=== PATIENT | male | born 1955 | race Caucasian/White ===

== ENCOUNTER 2018-09-10 06:26 | Day surgery (SDC) | payer OTHER ==
[2018-09-10] MEDS ORDERED: Ketamine HCl 50 MG/ML IJ ONE (06:27)
[2018-09-10] MEDS ORDERED: Versed 2 MG/2 ML Injection IV ONE (06:27)
[2018-09-10] MEDS ORDERED: DIPRIVAN 200 MG/20 ML IV ONE (06:27)
[2018-09-10] MEDS ORDERED: Lactated Ringers 1,000 ML IV SCH (06:30)
[2018-09-10] MEDS ORDERED: Lactated Ringers 1,000 ML IV ONE (08:58)
[2018-09-10 09:37] VITALS: O2SAT 99
[2018-09-10 09:39] VITALS: BP 131/86; PULSE 55
--- NOTE | 2018-09-10 12:48 | OP ---
SURGERY DATE/TIME: 09/10/2018 0801 PREOPERATIVE DIAGNOSIS: Screening exam. History of colon polyps eight years ago. POSTOPERATIVE DIAGNOSIS: Mild sigmoid diverticulosis otherwise normal colon. PROCEDURE: Colonoscopy. SURGEON: Dr. Luna. ANESTHESIA: MAC. Medications given by anesthesia department. HISTORY: The patient is a 62 year-old white male patient presenting now for reinvestigation. He reported he had two polyps removed approximately eight years ago. He was reappraised of the risks of the procedure including the risk of perforation, phlebitis, untoward reaction to medication, bleeding and missed lesions. The patient verbalized his understanding and desired to have the procedure performed. DESCRIPTION OF PROCEDURE: The patient was given the medications by the anesthesia department. He had continuous pulse oximetry, ECG monitoring, intermittent blood pressure monitoring and tidal CO2 monitoring during the examination. He was placed in the left lateral decubitus position. A digital rectal examination was performed and revealed normal anal sphincter tone, no masses and normal prostate. The flexible Olympus pediatric colonoscope was used to intubate the rectum. A view of the colon was developed sequentially to the cecum. Upon insertion and withdrawal, including a retroflex view in the rectum, there was noted a few scattered sigmoid diverticula but no other mucosal lesions were encountered. The scope was removed from the patient who tolerated the procedure well and was sent back to OP recovery in good condition. The prep was noted to be fair.
== END 2018-09-10 09:45 | disposition home or self-care (01) ==
LOC: SDC 06:26
PROVIDERS: ATTEND Family Medicine
DX: Z12.11 Encounter for screening for malignant neoplasm of colon (principal); K57.30 Diverticulosis of large intestine without perforation or abscess without bleeding; Z86.010 Personal history of colon polyps
CPT/HCPCS: J2250; J2704

== ENCOUNTER 2020-03-25 12:16 | Emergency (ER) | payer OTHER ==
[2020-03-25 12:54] VITALS: O2SAT 97
[2020-03-25] MEDS ORDERED: MORPHINE SULFATE 4 MG INJ IV ONE (12:59)
[2020-03-25] MEDS ORDERED: Sodium Chloride 0.9% 1000 ML 1,000 ML IV STA (12:59)
[2020-03-25] MEDS ORDERED: Zofran 4 MG/2 ML VIAL IV ONE (12:59)
[2020-03-25 13:00] LABS: BASOPHIL % 0.7 % (0.0-0.4); Basophil (Absolute #) 0.04 (0-0.4); Eosinophil % 3.7 % (0.00-5.0); Eosinophil (Absolute #) 0.21 (0-0.5); Hematocrit 34.9 % (42-50); Lymphocyte (Absolute #) 1.01 (1.0-4.6); Lymphocytes % 17.7 % (24.0-44.0); Mean Cell Volume 93.8 fl (78-100); Mean Corpuscular Hemoglobin 29.6 pg (26-32); Mean Corpuscular Hgb Concent. 31.5 g/dl (32-36); Mean Platelet Volume 9.7 fl (7.5-11.0); Monocyte (Absolute #) 0.56 (0.0-1.3); Monocytes % 9.8 % (0.0-12.0); Neutrophil % 68.1 % (36.0-66.0); Platelet Count 351 K/mm3 (150-450); Red Blood Count 3.72 M/mm3 (4.1-5.6); Red Cell Distribution Width 13.8 % (11.5-14.0); White Blood Count 5.7 K/mm3 (4.0-10.5)
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
[2020-03-25 13:15] LABS: ALBUMIN 4.3 g/dL (3.5-5.0); ALKALINE PHOSPHATASE 76 U/L (38-126); ANION GAP 9.5 MEQ/L (5-15); BLOOD UREA NITROGEN 26 mg/dL (9-20); CHLORIDE 106 mmol/L (98-107); Calcium 9.2 mg/dL (8.4-10.2); Carbon Dioxide 25 mmol/L (22-30); Creatinine 1 0.87 mg/dL (0.66-1.25); Glucose 91 mg/dL (74-106); LIPASE 95 U/L (23-300); Potassium 4.5 mmol/L (3.5-5.1); SGOT/AST 37 U/L (17-59); SGPT/ALT 26 U/L (0-50); SODIUM 136 mmol/L (137-145); Total Protein 7.4 g/dL (6.3-8.2)
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
[2020-03-25] MEDS ORDERED: Zofran 4 MG/2 ML VIAL ONE (13:42)
[2020-03-25] MEDS ORDERED: MORPHINE SULFATE 4 MG INJ ONE (13:43)
[2020-03-25] MEDS ORDERED: Sodium Chloride 0.9% 1000 ML 1,000 ML ONE (13:43)
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
[2020-03-25 14:19] VITALS: BP 141/81; PULSE 58
== END 2020-03-25 14:21 | disposition home or self-care (01) ==
LOC: ED 12:16
DX: M54.2 Cervicalgia (principal); N28.1 Cyst of kidney, acquired; V59.40XA Driver of pick-up truck or van injured in collision with unspecified motor vehicles in traffic accident, initial encounter; Y93.9 Activity, unspecified; Y92.410 Unspecified street and highway as the place of occurrence of the external cause
CPT/HCPCS: 36000; 36415; 70450; 71260; 72125; 73562; 74177; 80053; 83690; 84484; 85025; 93005; 96374; 96375; 99285; J2270; J2405

== ENCOUNTER 2020-12-23 09:23 | Day surgery (SDC) | payer OTHER ==
--- NOTE | 2020-12-16 09:14 | HP ---
DATE OF SURGERY: 12/23/2020 HISTORY OF PRESENT ILLNESS: The patient presented with anemia for some time. The last hemoglobin was 8.4. He denies GI signs or symptoms. No occult blood. Last colonoscopy was in [address] Luna was negative. There has been no prior EGD. PAST MEDICAL HISTORY: Depression. Arthritis. Benign prostatic hypertrophy. PAST SURGICAL HISTORY: Rotator cuff x3 left and right. Knee surgery. Bilateral inguinal hernia. ALLERGIES: NKDA. MEDICATIONS: Gabapentin, Lexapro, Nuvigil, Chlorthalidone, Flomax, donepezil, vitamin B, multivitamin. FAMILY HISTORY: Chronic obstructive pulmonary disease, non-Hodgkin's lymphoma. SOCIAL HISTORY: Former smoker. REVIEW OF SYSTEMS: CONSTITUTIONAL: Denies fever or chills. CHEST: Denies shortness of breath. CVS: Denies chest pain. ABDOMEN: Denies abdominal pain, nausea, vomiting, diarrhea, constipation or rectal bleeding. INTEGUMENTARY: Negative. PHYSICAL EXAMINATION: GENERAL: No acute distress. CHEST: Nonlabored. No shortness of breath. CVS: Regular rate and rhythm. ABDOMEN: Soft, nontender to palpation. EXTREMITIES: No edema. NEUROLOGIC: Alert. PSYCHIATRIC: Appropriate. IMPRESSION: Anemia. PLAN: EGD and colonoscopy with Dr. Guilherme Lieberman. As dictated by Alicia Sinclair NP.
[2020-12-23] MEDS ORDERED: Lactated Ringers 1,000 ML IV SCH (09:30)
[2020-12-23] MEDS ORDERED: Lactated Ringers 1,000 ML IV ONE ×2 (09:47→12:23)
[2020-12-23] MEDS ORDERED: DIPRIVAN 200 MG/20 ML IV ONE ×2 (11:50→12:16)
[2020-12-23] MEDS ORDERED: PHENYLEPHRINE HCL ONE (12:11)
[2020-12-23] MEDS ORDERED: GlucaGen 1 MG ONE (12:13)
[2020-12-23 13:31] VITALS: BP 122/66; PULSE 55; O2SAT 99
--- NOTE | 2020-12-23 13:44 | OP ---
SURGERY DATE/TIME: 12/23/2020 1154 PREOPERATIVE DIAGNOSIS: Anemia. POSTOPERATIVE DIAGNOSIS: No source of anemia noted from today's exam. PROCEDURES: 1) EGD with the diagnosis of Grade C/D gastroesophageal reflux disease and a 1.5 inch hiatal hernia. 2) Colonoscopy complete to cecum, moderate sigmoid diverticulosis and severe internal hemorrhoids. No site of bleeding. SURGEON: Guilherme Lieberman M.D. ANESTHESIA: MAC/general. COMPLICATIONS: None. CONDITION: Stable. INDICATION: A patient requiring evaluation. DESCRIPTION OF PROCEDURE: Taken to endoscopy. Sedation provided. Good anesthesia was present. Pharyngoesophageal junction was normal. Esophagus normal down to gastroesophageal junction. Rim of esophagitis grade C/D but no signs of any active or chronic bleeding. A 1.5 inch hiatal hernia. Fundus, body and antrum was normal. Pylorus normal. Duodenal bulb normal. Second portion normal. The scope was withdrawn looped upon itself and satisfactory from below. Keyhole view again obtained and there was no duodenal ulcer. Scope withdrawn. Anal digital examination satisfactory. Scope introduced. Scope advanced to the cecum. There was some spasm. There was excellent prep. Withdrawal time of about 6 minutes. Base of cecum, ileocecal valve and appendiceal orifice satisfactory. Ascending, hepatic, transverse, splenic, descending satisfactory. Moderate sigmoid diverticulosis, this was inspected three times in the sigmoid. Rectum, anus severe internal hemorrhoids. The patient tolerated the procedure satisfactorily. Findings discussed with the .
== END 2020-12-23 13:45 | disposition home or self-care (01) ==
LOC: SDC 09:23
PROVIDERS: ATTEND Surgery
DX: D64.9 Anemia, unspecified (principal); K21.9 Gastro-esophageal reflux disease without esophagitis; K44.9 Diaphragmatic hernia without obstruction or gangrene; K57.30 Diverticulosis of large intestine without perforation or abscess without bleeding; K64.8 Other hemorrhoids; Z79.899 Other long term (current) drug therapy
CPT/HCPCS: J1610; J2370; J2704

== ENCOUNTER 2023-02-14 12:43 | Inpatient (IN) | payer OTHER ==
[2023-02-14] MEDS ORDERED: Aplisol ID ONE (14:09)
[2023-02-15] MEDS: NORCO 7.5/325 MG TAB PO PRN ×4 (01:15→18:52)
[2023-02-15] MEDS: VANCOMYCIN 1 GRAM/200 ML BAG 1 GM/200 ML PIGGYBACK IV SCH ×3 (02:55→22:09)
[2023-02-15 05:15] LABS: Absolute Neutrophil Ct (ANC) 5.83 x10^3/uL (1.4-6.9); BASOPHIL % 0.9 % (0.0-0.4); Basophil (Absolute #) 0.08 x10^3/uL (0-0.4); Eosinophil % 5.1 % (0.00-5.0); Eosinophil (Absolute #) 0.44 x10^3/uL (0-0.5); Hematocrit 29.8 % (42-50); Hemoglobin 8.8 g/dL (12.5-18.0); IMMATURE GRAN # 0.03 x10^3u/L (0.00-0.03); IMMATURE GRAN % 0.3 % (0.00-0.4); Lymphocytes % 16.1 % (24.0-44.0); Mean Cell Volume 90.9 fL (78-100); Mean Corpuscular Hemoglobin 26.8 pg (26-32); Mean Corpuscular Hgb Concent. 29.5 g/dL (32-36); Mean Platelet Volume 8.9 fL (7.5-11.0); Monocyte (Absolute #) 0.93 x10^3/uL (0.0-1.3); Monocytes % 10.7 % (0.0-12.0); Neutrophil % 66.9 % (36.0-66.0); Platelet Count 535 x10^3/uL (150-450); Red Blood Count 3.28 x10^6/uL (4.1-5.6); Red Cell Distribution Width 15.2 % (11.5-14.0); White Blood Count 8.7 x10^3/uL (4.0-10.5)
[2023-02-15] MEDS ORDERED: Miralax Powder 17GM PACKET PO PRN (06:54)
[2023-02-15] MEDS ORDERED: MEDICATION INTERVENTION MC SCH (07:15)
[2023-02-15] MEDS ORDERED: NON-FORMULARY ITEM (Vitamin B Complex [Vitamin B Complex] 1 EACH Tablet) PO SCH (10:00)
[2023-02-15] MEDS ORDERED: DONEPEZIL HCL 5 MG PO SCH (10:00)
[2023-02-15] MEDS ORDERED: Aricept 10 MG PO SCH (10:00)
[2023-02-15] MEDS ORDERED: ARMODAFINIL 50 MG PO SCH (10:00)
[2023-02-15] MEDS ORDERED: MULTIVITAMIN PO SCH (10:00)
[2023-02-15] MEDS ORDERED: Aplisol ID SCH (10:00)
[2023-02-15] MEDS: Flomax 0.4 MG PO SCH (10:24)
[2023-02-15] MEDS: FEOSOL 325 MG PO SCH (10:24)
[2023-02-15] MEDS: Lexapro PO SCH (10:25)
[2023-02-15] MEDS: VITA-BEE WITH C PO SCH (10:26)
[2023-02-15] MEDS: celeBREX 100 MG PO SCH (10:26)
[2023-02-15] MEDS: XARELTO 10 MG TABLET PO SCH (10:26)
[2023-02-15] MEDS: THERAGRAN MULTIVITAMIN PO SCH (10:26)
[2023-02-15] MEDS ORDERED: Sodium Chloride 0.9% 10 ML FLUSH Syringe PICC PRN (11:13)
[2023-02-15 15:11] LABS: Creatinine 1 1.04 mg/dL (0.66-1.25); EST GLOMERULAR FILTRATION RATE > 60.0 ML/MIN
[2023-02-15] MEDS ORDERED: TROUGH DRUG LEVELS IJ ONE (21:00)
[2023-02-15] MEDS: Aricept 10 MG PO SCH (22:08)
[2023-02-15] MEDS: NEURONTIN PO SCH (22:09)
[2023-02-16] MEDS: NORCO 7.5/325 MG TAB PO PRN ×4 (00:14→20:31)
[2023-02-16] MEDS: celeBREX 100 MG PO SCH (09:04)
[2023-02-16] MEDS: Flomax 0.4 MG PO SCH (09:04)
[2023-02-16] MEDS: XARELTO 10 MG TABLET PO SCH (09:04)
[2023-02-16] MEDS: Lexapro PO SCH (09:04)
[2023-02-16] MEDS: THERAGRAN MULTIVITAMIN PO SCH (09:04)
[2023-02-16] MEDS: FEOSOL 325 MG PO SCH (09:04)
[2023-02-16] MEDS: VITA-BEE WITH C PO SCH (09:05)
[2023-02-16] MEDS: VANCOMYCIN 1 GRAM/200 ML BAG 1 GM/200 ML PIGGYBACK IV SCH ×2 (10:39→21:48)
[2023-02-16] MEDS: PATIENT OWN MEDICATION PO SCH (13:40)
[2023-02-16] MEDS: Aricept 10 MG PO SCH (21:48)
[2023-02-16] MEDS: NEURONTIN PO SCH (21:48)
[2023-02-17] MEDS: FEOSOL 325 MG PO SCH (09:46)
[2023-02-17] MEDS: celeBREX 100 MG PO SCH (09:46)
[2023-02-17] MEDS: THERAGRAN MULTIVITAMIN PO SCH (09:46)
[2023-02-17] MEDS: Flomax 0.4 MG PO SCH (09:46)
[2023-02-17] MEDS: XARELTO 10 MG TABLET PO SCH (09:46)
[2023-02-17] MEDS: Lexapro PO SCH (09:50)
[2023-02-17] MEDS: VITA-BEE WITH C PO SCH (09:51)
[2023-02-17] MEDS: NORCO 7.5/325 MG TAB PO PRN ×3 (09:51→22:43)
[2023-02-17] MEDS: VANCOMYCIN 1 GRAM/200 ML BAG 1 GM/200 ML PIGGYBACK IV SCH ×2 (09:52→22:44)
[2023-02-17] MEDS: PATIENT OWN MEDICATION PO SCH (09:52)
[2023-02-17] MEDS: NEURONTIN PO SCH (22:43)
[2023-02-17] MEDS: Aricept 10 MG PO SCH (22:43)
[2023-02-18] MEDS: NORCO 7.5/325 MG TAB PO PRN ×4 (05:41→22:37)
[2023-02-18] MEDS: Flomax 0.4 MG PO SCH (10:07)
[2023-02-18] MEDS: celeBREX 100 MG PO SCH (10:07)
[2023-02-18] MEDS: Lexapro PO SCH (10:07)
[2023-02-18] MEDS: FEOSOL 325 MG PO SCH (10:07)
[2023-02-18] MEDS: VANCOMYCIN 1 GRAM/200 ML BAG 1 GM/200 ML PIGGYBACK IV SCH ×2 (10:07→22:36)
[2023-02-18] MEDS: PATIENT OWN MEDICATION PO SCH (10:07)
[2023-02-18] MEDS: XARELTO 10 MG TABLET PO SCH (10:08)
[2023-02-18] MEDS: VITA-BEE WITH C PO SCH (10:08)
[2023-02-18] MEDS: THERAGRAN MULTIVITAMIN PO SCH (10:08)
[2023-02-18] MEDS: NEURONTIN PO SCH (22:36)
[2023-02-18] MEDS: Aricept 10 MG PO SCH (22:36)
[2023-02-19] MEDS: NORCO 7.5/325 MG TAB PO PRN ×3 (06:45→21:36)
[2023-02-19] MEDS: Flomax 0.4 MG PO SCH (08:32)
[2023-02-19] MEDS: VANCOMYCIN 1 GRAM/200 ML BAG 1 GM/200 ML PIGGYBACK IV SCH ×2 (08:32→21:33)
[2023-02-19] MEDS: PATIENT OWN MEDICATION PO SCH (08:32)
[2023-02-19] MEDS: celeBREX 100 MG PO SCH (08:33)
[2023-02-19] MEDS: XARELTO 10 MG TABLET PO SCH (08:33)
[2023-02-19] MEDS: Lexapro PO SCH (08:33)
[2023-02-19] MEDS: FEOSOL 325 MG PO SCH (08:34)
[2023-02-19] MEDS: THERAGRAN MULTIVITAMIN PO SCH (08:34)
[2023-02-19] MEDS: VITA-BEE WITH C PO SCH (08:35)
[2023-02-19] MEDS: NEURONTIN PO SCH (21:34)
[2023-02-19] MEDS: Aricept 10 MG PO SCH (21:34)
[2023-02-20] MEDS: NORCO 7.5/325 MG TAB PO PRN ×2 (04:41→14:21)
[2023-02-20] MEDS: VANCOMYCIN 1 GRAM/200 ML BAG 1 GM/200 ML PIGGYBACK IV SCH ×2 (10:11→22:06)
[2023-02-20] MEDS: THERAGRAN MULTIVITAMIN PO SCH (10:12)
[2023-02-20] MEDS: Lexapro PO SCH (10:12)
[2023-02-20] MEDS: Flomax 0.4 MG PO SCH (10:12)
[2023-02-20] MEDS: PATIENT OWN MEDICATION PO SCH (10:12)
[2023-02-20] MEDS: celeBREX 100 MG PO SCH (10:12)
[2023-02-20] MEDS: FEOSOL 325 MG PO SCH (10:12)
[2023-02-20] MEDS: XARELTO 10 MG TABLET PO SCH (10:12)
[2023-02-20] MEDS: VITA-BEE WITH C PO SCH (10:13)
[2023-02-20] MEDS: CHLORTHALIDONE PO SCH (17:41)
[2023-02-20] MEDS: Aricept 10 MG PO SCH (22:06)
[2023-02-20] MEDS: NEURONTIN PO SCH (22:06)
[2023-02-21] MEDS: VANCOMYCIN 1 GRAM/200 ML BAG 1 GM/200 ML PIGGYBACK IV SCH ×2 (08:39→22:09)
[2023-02-21] MEDS: THERAGRAN MULTIVITAMIN PO SCH (09:30)
[2023-02-21] MEDS: XARELTO 10 MG TABLET PO SCH (09:30)
[2023-02-21] MEDS: Flomax 0.4 MG PO SCH (09:30)
[2023-02-21] MEDS: Lexapro PO SCH (09:30)
[2023-02-21] MEDS: PATIENT OWN MEDICATION PO SCH (09:31)
[2023-02-21] MEDS: celeBREX 100 MG PO SCH (09:31)
[2023-02-21] MEDS: VITA-BEE WITH C PO SCH (09:31)
[2023-02-21] MEDS: CHLORTHALIDONE PO SCH (09:31)
[2023-02-21] MEDS: FEOSOL 325 MG PO SCH (09:31)
[2023-02-21] MEDS: NORCO 7.5/325 MG TAB PO PRN ×2 (10:25→23:55)
[2023-02-21] MEDS: NEURONTIN PO SCH (22:09)
[2023-02-21] MEDS: Aricept 10 MG PO SCH (22:09)
[2023-02-22 04:58] LABS: Absolute Neutrophil Ct (ANC) 4.95 x10^3/uL (1.4-6.9); BASOPHIL % 0.9 % (0.0-0.4); Basophil (Absolute #) 0.07 x10^3/uL (0-0.4); Eosinophil % 5.2 % (0.00-5.0); Hematocrit 26.9 % (42-50); Hemoglobin 8.3 g/dL (12.5-18.0); IMMATURE GRAN # 0.14 x10^3u/L (0.00-0.03); IMMATURE GRAN % 1.8 % (0.00-0.4); Lymphocyte (Absolute #) 1.21 x10^3/uL (1.0-4.6); Lymphocytes % 15.7 % (24.0-44.0); Mean Corpuscular Hemoglobin 27.8 pg (26-32); Mean Corpuscular Hgb Concent. 30.9 g/dL (32-36); Mean Platelet Volume 9.1 fL (7.5-11.0); Monocyte (Absolute #) 0.94 x10^3/uL (0.0-1.3); Monocytes % 12.2 % (0.0-12.0); Neutrophil % 64.2 % (36.0-66.0); Platelet Count 384 x10^3/uL (150-450); Red Blood Count 2.99 x10^6/uL (4.1-5.6); Red Cell Distribution Width 15.9 % (11.5-14.0); White Blood Count 7.7 x10^3/uL (4.0-10.5)
[2023-02-22 05:24] LABS: BLOOD UREA NITROGEN 33 mg/dL (9-20); EST GLOMERULAR FILTRATION RATE > 60.0 ML/MIN
[2023-02-22] MEDS: celeBREX 100 MG PO SCH (09:58)
[2023-02-22] MEDS: PATIENT OWN MEDICATION PO SCH (09:58)
[2023-02-22] MEDS: Lexapro PO SCH (09:59)
[2023-02-22] MEDS: THERAGRAN MULTIVITAMIN PO SCH (09:59)
[2023-02-22] MEDS: XARELTO 10 MG TABLET PO SCH (09:59)
[2023-02-22] MEDS: VANCOMYCIN 1 GRAM/200 ML BAG 1 GM/200 ML PIGGYBACK IV SCH ×2 (09:59→22:50)
[2023-02-22] MEDS: FEOSOL 325 MG PO SCH (09:59)
[2023-02-22] MEDS: Flomax 0.4 MG PO SCH (09:59)
[2023-02-22] MEDS: CHLORTHALIDONE PO SCH (10:00)
[2023-02-22] MEDS: VITA-BEE WITH C PO SCH (10:00)
[2023-02-22] MEDS ORDERED: TROUGH DRUG LEVELS IJ ONE (21:00)
[2023-02-22] MEDS: NORCO 7.5/325 MG TAB PO PRN (22:49)
[2023-02-22] MEDS: Aricept 10 MG PO SCH (22:50)
[2023-02-22] MEDS: NEURONTIN PO SCH (22:50)
[2023-02-23] MEDS ORDERED: Cathflo Activase 2 MG IV ONE (08:00)
[2023-02-23] MEDS: VANCOMYCIN 1 GRAM/200 ML BAG 1 GM/200 ML PIGGYBACK IV SCH ×2 (09:05→21:47)
[2023-02-23] MEDS: FEOSOL 325 MG PO SCH (09:06)
[2023-02-23] MEDS: celeBREX 100 MG PO SCH (09:06)
[2023-02-23] MEDS: Lexapro PO SCH (09:06)
[2023-02-23] MEDS: Flomax 0.4 MG PO SCH (09:07)
[2023-02-23] MEDS: XARELTO 10 MG TABLET PO SCH (09:07)
[2023-02-23] MEDS: VITA-BEE WITH C PO SCH (09:08)
[2023-02-23] MEDS: CHLORTHALIDONE PO SCH (09:08)
[2023-02-23] MEDS: THERAGRAN MULTIVITAMIN PO SCH (09:08)
[2023-02-23] MEDS: PATIENT OWN MEDICATION PO SCH (09:09)
[2023-02-23] MEDS: NEURONTIN PO SCH (21:47)
[2023-02-23] MEDS: Aricept 10 MG PO SCH (21:54)
[2023-02-24] MEDS: THERAGRAN MULTIVITAMIN PO SCH (08:35)
[2023-02-24] MEDS: XARELTO 10 MG TABLET PO SCH (08:35)
[2023-02-24] MEDS: Lexapro PO SCH (08:35)
[2023-02-24] MEDS: VANCOMYCIN 1 GRAM/200 ML BAG 1 GM/200 ML PIGGYBACK IV SCH ×2 (08:35→23:08)
[2023-02-24] MEDS: celeBREX 100 MG PO SCH (08:35)
[2023-02-24] MEDS: Flomax 0.4 MG PO SCH (08:35)
[2023-02-24] MEDS: FEOSOL 325 MG PO SCH (08:35)
[2023-02-24] MEDS: PATIENT OWN MEDICATION PO SCH (08:36)
[2023-02-24] MEDS: VITA-BEE WITH C PO SCH (08:36)
[2023-02-24] MEDS: CHLORTHALIDONE PO SCH (08:36)
[2023-02-24] MEDS: NORCO 7.5/325 MG TAB PO PRN (14:46)
[2023-02-24] MEDS: NEURONTIN PO SCH (23:08)
[2023-02-24] MEDS: Aricept 10 MG PO SCH (23:08)
[2023-02-25] MEDS: XARELTO 10 MG TABLET PO SCH (09:30)
[2023-02-25] MEDS: Flomax 0.4 MG PO SCH (09:30)
[2023-02-25] MEDS: CHLORTHALIDONE PO SCH (09:31)
[2023-02-25] MEDS: Lexapro PO SCH (09:31)
[2023-02-25] MEDS: VITA-BEE WITH C PO SCH (09:31)
[2023-02-25] MEDS: FEOSOL 325 MG PO SCH (09:31)
[2023-02-25] MEDS: THERAGRAN MULTIVITAMIN PO SCH (09:31)
[2023-02-25] MEDS: celeBREX 100 MG PO SCH (09:31)
[2023-02-25] MEDS: PATIENT OWN MEDICATION PO SCH (09:32)
[2023-02-25] MEDS: VANCOMYCIN 1 GRAM/200 ML BAG 1 GM/200 ML PIGGYBACK IV SCH ×2 (09:35→22:13)
--- NOTE | 2023-02-25 17:57 | PCM.HP ---
History of Present Illness - Chief Complaint Chief Complaint: DECONDITIONING R/T REMOVAL RIGHT TKA FOR INFECTION Date: 02/15/23 History of Present Illness: is a 67 year old male admitted for rehab S/P reoval of right knee TKR hardware due to infection. signed in paper chart .Dr Ontiveros admitted Medications & Allergies Home Medications: Home Medication List Escitalopram Oxalate [Lexapro] 20 mg PO DAILY 11/20/17 [History Confirmed 02/14/23] Multivitamin [Daily Multiple Vitamin] 1 each PO DAILY 11/20/17 [History Confirmed 02/14/23] armodafiniL [Nuvigil] 100 mg PO DAILY 09/10/18 [History Confirmed 02/14/23] Tamsulosin HCl 0.4 mg [Flomax 0.4 MG] 0.4 mg PO DAILY 03/25/20 [History Confirmed 02/14/23] Donepezil HCl 10 mg PO DAILY 12/01/20 [History Confirmed 02/14/23] Ferrous Sulfate [Iron] 325 mg PO DAILY 12/01/20 [History Confirmed 02/14/23] Gabapentin [Neurontin] 300 mg PO HS 12/01/20 [History Confirmed 02/14/23] Vitamin B Complex 1 each PO DAILY 12/01/20 [History Confirmed 02/14/23] Celecoxib 100 mg [celeBREX 100 MG] 200 mg PO DAILY 02/14/23 [History Confirmed 02/14/23] Hydrocodone/Acetaminophen [Hydrocodone-Acetamin 7.5-325] 2 each PO Q4H PRN PRN 02/14/23 [History Confirmed 02/14/23] Polyethylene Glycol 3350 17 gm [Miralax Powder 17GM PACKET] 17 gm PO Q12H PRN PRN 02/14/23 [History Confirmed 02/14/23] Rivaroxaban 10 mg Tablet [Xarelto 10 mg Tablet] 10 mg PO DAILY 02/14/23 [History Confirmed 02/14/23] Chlorthalidone 25 mg PO DAILY 02/20/23 [History Confirmed 02/20/23] Allergies/Adverse Reactions: Allergies Allergy/AdvReac Type Severity Reaction Status Date / Time No Known Drug Allergies Allergy Verified 01/04/21 13:33 - Past Medical History Past Medical History: Yes Neurological History: No Pertinent History ENT History: No Pertinent History Cardiac History: No Pertinent History Respiratory History: Sleep Apnea Endocrine Medical History: No Pertinent History Musculoskelatal History: Osteoarthritis GI Medical History: Polyps History: No Pertinent History Pyscho-Social History: Anxiety, Depression Male Reproductive Disorders: No Pertinent History Comment: former smoker. anemia. excessive daytime sleepiness - Past Surgical History Past Surgical History: Yes Neuro Surgical History: No Pertinent History Cardiac History: No Pertinent History Respiratory Surgery: No Pertinent History GI Surgical History: Hernia Repair Genitourinary Surgical Hx: No Pertinent History Musculskeletal Surgical Hx: Joint Replacement, Orthopedic Surgery Male Surgical History: No Pertinent History Other Surgical History: bilateral knee replacement. bilateral knee scopes. rotator cuff x 2 left x 1 right. EGD, colonoscopy - Social History Smoking Status: Former smoker How long have you smoked: 40 years Exposure to second hand smoke: No Alcohol: None Drug Use: none - Physical Exam Vital Signs: Vital Signs - 24 hr Temp Pulse Resp BP Pulse Ox 02/25/23 08:55 97.3 F 55 L 19 123/59 98 02/24/23 21:00 97.8 F 61 14 116/63 98 Wound Assessment: Skin/Wound Assessment Wound/Incision Assessment Start: 02/14/23 21:38 Text: Status: Active Freq: Q6H Protocol: Document 02/25/23 14:00 JAZMYNE (Rec: 02/25/23 15:45 [facility] [id number]) Wound/Incision Assessment Right Knee Wound Assessment Shift Assessment Wound Type Incision Dressing Status Dry & Intact Drainage Amount None General Appearance Well Approximated Comment [address] - OPEN TO AIR Wound Photo Photo Taken No Assessment/Plan (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 Qualifiers: Encounter type: sequela Qualified Code(s): T84.59XS - Infection and inflammatory reaction due to other internal joint prosthesis, sequela; Z96.659 - Presence of unspecified artificial knee joint Assessment & Plan: right knee TKA removed and antibiotic spacer implanted.IV antibiotics per Infectious Dz Dr Snider Code(s): T84.59XA - INFECT/INFLM REACTION DUE TO OTH INTERNAL JOINT PROSTH, INIT; Z96.659 - PRESENCE OF UNSPECIFIED ARTIFICIAL KNEE JOINT (2) History of total right knee replacement (TKR) Current Visit: Yes Status: Chronic Code(s): Z96.651 - PRESENCE OF RIGHT ARTIFICIAL KNEE JOINT (3) Anemia Current Visit: Yes Status: Chronic Assessment & Plan: Intelligence Intern follows Code(s): D64.9 - ANEMIA, UNSPECIFIED (4) HTN (hypertension) Current Visit: Yes Status: Chronic Assessment & Plan: monitor Code(s): I10 - ESSENTIAL (PRIMARY) HYPERTENSION (5) Physical deconditioning Current Visit: Yes Status: Acute Assessment & Plan: PT required to prevnt fall etc Code(s): R53.81 - OTHER MALAISE
--- NOTE | 2023-02-25 18:07 | PCM.NOTE ---
Date and Time: 02/25/231804 Subjective Assessment: Patient is progressing ,ambulating with Walker avoiding any weight bearing RLE. IV antibiotic Vanc with levels monitored /dosing by Pharmacist. Objective Exam Wound Assessment: Skin/Wound Assessment Wound/Incision Assessment Start: 02/14/23 21:38 Text: Status: Active Freq: Q6H Protocol: Document 02/25/23 14:00 RDUHNE (Rec: 02/25/23 15:45 [email or web address] [id number]) Wound/Incision Assessment Right Knee Wound Assessment Shift Assessment Wound Type Incision Dressing Status Dry & Intact Drainage Amount None General Appearance Well Approximated Comment [address] - OPEN TO AIR Wound Photo Photo Taken No OBJECTIVE DATA Vital Signs: Vital Signs - 24 hr Temp Pulse Resp BP Pulse Ox 02/25/23 08:55 97.3 F 55 L 19 123/59 98 02/24/23 21:00 97.8 F 61 14 116/63 98 Pain Assessment - Last Documented Pain Intensity 5 Pain Scale Used 0-10 Pain Scale Intake and Output: Intake & Output 02/23/23 02/24/23 02/25/23 02/26/23 11:59 11:59 11:59 11:59 Intake Total 1900 2032 480 120 Balance 1900 2032 480 120 Weight 85.3 kg 85.3 kg Assessment/Plan (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 Qualifiers: Encounter type: sequela Qualified Code(s): T84.59XS - Infection and inflammatory reaction due to other internal joint prosthesis, sequela; Z96.659 - Presence of unspecified artificial knee joint Code(s): T84.59XA - INFECT/INFLM REACTION DUE TO OTH INTERNAL JOINT PROSTH, INIT; Z96.659 - PRESENCE OF UNSPECIFIED ARTIFICIAL KNEE JOINT (2) History of total right knee replacement (TKR) Current Visit: Yes Status: Chronic Code(s): Z96.651 - PRESENCE OF RIGHT ARTIFICIAL KNEE JOINT (3) Anemia Current Visit: Yes Status: Chronic Code(s): D64.9 - ANEMIA, UNSPECIFIED (4) HTN (hypertension) Current Visit: Yes Status: Chronic Code(s): I10 - ESSENTIAL (PRIMARY) HYPERTENSION (5) Physical deconditioning Current Visit: Yes Status: Acute Code(s): R53.81 - OTHER MALAISE
[2023-02-25] MEDS: NEURONTIN PO SCH (22:13)
[2023-02-25] MEDS: Aricept 10 MG PO SCH (22:13)
[2023-02-26] MEDS: Lexapro PO SCH (09:24)
[2023-02-26] MEDS: XARELTO 10 MG TABLET PO SCH (09:24)
[2023-02-26] MEDS: VANCOMYCIN 1 GRAM/200 ML BAG 1 GM/200 ML PIGGYBACK IV SCH ×2 (09:24→22:23)
[2023-02-26] MEDS: VITA-BEE WITH C PO SCH (09:24)
[2023-02-26] MEDS: FEOSOL 325 MG PO SCH (09:25)
[2023-02-26] MEDS: Flomax 0.4 MG PO SCH (09:25)
[2023-02-26] MEDS: PATIENT OWN MEDICATION PO SCH (09:25)
[2023-02-26] MEDS: THERAGRAN MULTIVITAMIN PO SCH (09:25)
[2023-02-26] MEDS: CHLORTHALIDONE PO SCH (09:26)
[2023-02-26] MEDS: celeBREX 100 MG PO SCH (09:38)
[2023-02-26] MEDS ORDERED: Aplisol ID SCH (10:00)
[2023-02-26 11:03] LABS: Absolute Neutrophil Ct (ANC) 4.03 x10^3/uL (1.4-6.9); BASOPHIL % 0.6 % (0.0-0.4); Basophil (Absolute #) 0.04 x10^3/uL (0-0.4); Eosinophil % 7.3 % (0.00-5.0); Eosinophil (Absolute #) 0.47 x10^3/uL (0-0.5); Hematocrit 29.5 % (42-50); IMMATURE GRAN # 0.02 x10^3u/L (0.00-0.03); IMMATURE GRAN % 0.3 % (0.00-0.4); Lymphocyte (Absolute #) 0.87 x10^3/uL (1.0-4.6); Lymphocytes % 13.6 % (24.0-44.0); Mean Cell Volume 91.3 fL (78-100); Mean Corpuscular Hemoglobin 27.9 pg (26-32); Mean Corpuscular Hgb Concent. 30.5 g/dL (32-36); Mean Platelet Volume 9.2 fL (7.5-11.0); Monocyte (Absolute #) 0.99 x10^3/uL (0.0-1.3); Monocytes % 15.4 % (0.0-12.0); Neutrophil % 62.8 % (36.0-66.0); Platelet Count 363 x10^3/uL (150-450); Red Blood Count 3.23 x10^6/uL (4.1-5.6); Red Cell Distribution Width 16.2 % (11.5-14.0); White Blood Count 6.4 x10^3/uL (4.0-10.5)
[2023-02-26 11:12] LABS: ALBUMIN 3.8 g/dL (3.5-5.0); ALKALINE PHOSPHATASE 114 U/L (38-126); ANION GAP 11.6 MEQ/L (5-15); BLOOD UREA NITROGEN 24 mg/dL (9-20); CHLORIDE 106 mmol/L (98-107); Calcium 8.7 mg/dL (8.4-10.2); Carbon Dioxide 26 mmol/L (22-30); Creatinine 1 1.13 mg/dL (0.66-1.25); EST GLOMERULAR FILTRATION RATE > 60.0 ML/MIN; Glucose 74 mg/dL (74-106); Potassium 4.1 mmol/L (3.5-5.1); SGOT/AST 40 U/L (17-59); SGPT/ALT 42 U/L (0-50); SODIUM 139 mmol/L (137-145)
[2023-02-26 11:14] LABS: INR 1.07 (0.8-3.0); PROTIME 11.6 SECONDS (9.4-12.5); PTT 30.5 SECONDS (25.1-36.5)
[2023-02-26 11:22] LABS: Iron 76 ug/dL (49-181); Iron Saturation 28 % (20-39); TIBC 266 ug/dL (261-497)
[2023-02-26] MEDS: NORCO 7.5/325 MG TAB PO PRN (15:44)
[2023-02-26] MEDS: NEURONTIN PO SCH (22:23)
[2023-02-26] MEDS: Aricept 10 MG PO SCH (22:23)
[2023-02-27] MEDS: PATIENT OWN MEDICATION PO SCH (09:32)
[2023-02-27] MEDS: VANCOMYCIN 1 GRAM/200 ML BAG 1 GM/200 ML PIGGYBACK IV SCH ×2 (09:32→22:12)
[2023-02-27] MEDS: Flomax 0.4 MG PO SCH (09:33)
[2023-02-27] MEDS: Lexapro PO SCH (09:33)
[2023-02-27] MEDS: XARELTO 10 MG TABLET PO SCH (09:33)
[2023-02-27] MEDS: VITA-BEE WITH C PO SCH (09:33)
[2023-02-27] MEDS: THERAGRAN MULTIVITAMIN PO SCH (09:33)
[2023-02-27] MEDS: FEOSOL 325 MG PO SCH (09:33)
[2023-02-27] MEDS: celeBREX 100 MG PO SCH (09:33)
[2023-02-27] MEDS: CHLORTHALIDONE PO SCH (09:34)
[2023-02-27] MEDS: NORCO 7.5/325 MG TAB PO PRN (14:41)
[2023-02-27] MEDS: NEURONTIN PO SCH (22:13)
[2023-02-27] MEDS: Aricept 10 MG PO SCH (22:13)
[2023-02-28] MEDS: XARELTO 10 MG TABLET PO SCH (08:24)
[2023-02-28] MEDS: celeBREX 100 MG PO SCH (08:24)
[2023-02-28] MEDS: THERAGRAN MULTIVITAMIN PO SCH (08:24)
[2023-02-28] MEDS: Lexapro PO SCH (08:24)
[2023-02-28] MEDS: Flomax 0.4 MG PO SCH (08:24)
[2023-02-28] MEDS: FEOSOL 325 MG PO SCH (08:24)
[2023-02-28] MEDS: PATIENT OWN MEDICATION PO SCH (08:25)
[2023-02-28] MEDS: VITA-BEE WITH C PO SCH (08:25)
[2023-02-28] MEDS: CHLORTHALIDONE PO SCH (08:25)
[2023-02-28] MEDS: VANCOMYCIN 1 GRAM/200 ML BAG 1 GM/200 ML PIGGYBACK IV SCH ×2 (09:10→22:38)
--- NOTE | 2023-02-28 19:12 | PCM.NOTE ---
Date and Time: 02/28/231906 Subjective Assessment: No complaints. Right knee pain controlled. Denies constipation, nausea, appetite changes. The patient was seen and examined via telemedicine. The entirety of this encounter was performed via telemedicine. The patient consented to this telemedicine encounter. 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, normal mood/affect, nml cerebellar function Skin Exam: normal color Wound Assessment: Skin/Wound Assessment Wound/Incision Assessment Start: 02/14/23 21:38 Text: Status: Active Freq: Q6H Protocol: Document 02/28/23 14:00 AR (Rec: 02/28/23 15:19 AR [id number]) Wound/Incision Assessment Right Knee Wound Assessment Shift Assessment Wound Type Incision Primary Dressing [place] Eye Exam: PERRL, EOMI, eyes nml inspection Ears, Nose, Throat Exam: normal ENT inspection Neck Exam: normal inspection, non-tender, supple, full range of motion Respiratory Exam: normal breath sounds, lungs clear Cardiovascular Exam: regular rate/rhythm, normal heart sounds Gastrointestinal/Abdomen Exam: soft, normal bowel sounds Extremity Exam: normal inspection, normal range of motion, other (Right knee in immobilizer.) Back Exam: normal range of motion OBJECTIVE DATA Vital Signs: Vital Signs - 24 hr Temp Pulse Resp BP Pulse Ox 02/28/23 07:52 96.1 F 62 16 106/65 98 02/27/23 20:32 97.0 F 77 20 122/56 95 Pain Assessment - Last Documented Pain Intensity 5 Pain Scale Used 0-10 Pain Scale Intake and Output: Intake & Output 02/26/23 02/27/23 02/28/23 03/01/23 11:59 11:59 11:59 11:59 Intake Total 720 1160 791 600 Balance 720 1160 791 600 Weight 85.3 kg 85.3 kg Lab Results: Recent labs reviewed. No acute anomalies. Multi-Disciplinary Progress Notes: Multi-Disciplinary Progress Notes 02/28/23 13:39 Case Management Note by Breanna Hernandez PATIENT CONTINUES TO MAXIMIZE SWINGBED STAY WHILE RECEIVING Q12H ANTIBIOTICS VIA PICC Initialized on 02/28/23 13:39 - END OF NOTE Assessment/Plan (1) Failed total knee arthroplasty Current Visit: Yes Status: Acute Qualifiers: Encounter type: sequela Qualified Code(s): T84.018S - Broken internal joint prosthesis, other site, sequela; Z96.659 - Presence of unspecified artificial knee joint Assessment & Plan: Plan in place for 04/11/23 ortho follow up and then 05/07/23 knee operation. Code(s): T84.018A - BROKEN INTERNAL JOINT PROSTHESIS, OTHER SITE, INIT ENCNTR; Z96.659 - PRESENCE OF UNSPECIFIED ARTIFICIAL KNEE JOINT (2) Physical deconditioning Current Visit: Yes Status: Acute Assessment & Plan: PT. Analgesia for knee pain. Code(s): R53.81 - OTHER MALAISE (3) HTN (hypertension) Current Visit: Yes Status: Chronic Assessment & Plan: Controlled. Continue to monitor BP. Code(s): I10 - ESSENTIAL (PRIMARY) HYPERTENSION
[2023-02-28] MEDS: Aricept 10 MG PO SCH (22:38)
[2023-02-28] MEDS: NEURONTIN PO SCH (22:38)
[2023-03-01 04:57] LABS: Creatinine 1 0.95 mg/dL (0.66-1.25); EST GLOMERULAR FILTRATION RATE > 60.0 ML/MIN
[2023-03-01] MEDS: XARELTO 10 MG TABLET PO SCH (08:19)
[2023-03-01] MEDS: celeBREX 100 MG PO SCH (08:19)
[2023-03-01] MEDS: Lexapro PO SCH (08:19)
[2023-03-01] MEDS: THERAGRAN MULTIVITAMIN PO SCH (08:19)
[2023-03-01] MEDS: Flomax 0.4 MG PO SCH (08:19)
[2023-03-01] MEDS: FEOSOL 325 MG PO SCH (08:19)
[2023-03-01] MEDS: CHLORTHALIDONE PO SCH (08:20)
[2023-03-01] MEDS: PATIENT OWN MEDICATION PO SCH (08:20)
[2023-03-01] MEDS: VITA-BEE WITH C PO SCH (08:20)
[2023-03-01] MEDS ORDERED: TROUGH DRUG LEVELS IJ ONE (09:00)
[2023-03-01] MEDS: VANCOMYCIN 1 GRAM/200 ML BAG 1 GM/200 ML PIGGYBACK IV SCH ×2 (10:05→21:47)
[2023-03-01] MEDS: NORCO 7.5/325 MG TAB PO PRN (16:03)
[2023-03-01] MEDS: NEURONTIN PO SCH (21:47)
[2023-03-01] MEDS: Aricept 10 MG PO SCH (21:47)
[2023-03-02] MEDS: celeBREX 100 MG PO SCH (09:10)
[2023-03-02] MEDS: XARELTO 10 MG TABLET PO SCH (09:11)
[2023-03-02] MEDS: FEOSOL 325 MG PO SCH (09:11)
[2023-03-02] MEDS: CHLORTHALIDONE PO SCH (09:11)
[2023-03-02] MEDS: Flomax 0.4 MG PO SCH (09:11)
[2023-03-02] MEDS: PATIENT OWN MEDICATION PO SCH (09:11)
[2023-03-02] MEDS: THERAGRAN MULTIVITAMIN PO SCH (09:11)
[2023-03-02] MEDS: Lexapro PO SCH (09:11)
[2023-03-02] MEDS: VANCOMYCIN 1 GRAM/200 ML BAG 1 GM/200 ML PIGGYBACK IV SCH ×2 (09:12→21:35)
[2023-03-02] MEDS: VITA-BEE WITH C PO SCH (09:26)
[2023-03-02] MEDS: Aricept 10 MG PO SCH (21:37)
[2023-03-02] MEDS: NEURONTIN PO SCH (21:37)
[2023-03-03] MEDS: NORCO 7.5/325 MG TAB PO PRN (06:07)
[2023-03-03] MEDS: Lexapro PO SCH (09:09)
[2023-03-03] MEDS: THERAGRAN MULTIVITAMIN PO SCH (09:09)
[2023-03-03] MEDS: celeBREX 100 MG PO SCH (09:09)
[2023-03-03] MEDS: FEOSOL 325 MG PO SCH (09:10)
[2023-03-03] MEDS: Flomax 0.4 MG PO SCH (09:10)
[2023-03-03] MEDS: XARELTO 10 MG TABLET PO SCH (09:10)
[2023-03-03] MEDS: PATIENT OWN MEDICATION PO SCH (09:10)
[2023-03-03] MEDS: VITA-BEE WITH C PO SCH (09:11)
[2023-03-03] MEDS: VANCOMYCIN 1 GRAM/200 ML BAG 1 GM/200 ML PIGGYBACK IV SCH ×2 (09:11→22:09)
[2023-03-03] MEDS: CHLORTHALIDONE PO SCH (09:11)
[2023-03-03] MEDS: Aricept 10 MG PO SCH (22:09)
[2023-03-03] MEDS: NEURONTIN PO SCH (22:09)
[2023-03-04] MEDS: NORCO 7.5/325 MG TAB PO PRN (07:49)
[2023-03-04] MEDS: FEOSOL 325 MG PO SCH (08:53)
[2023-03-04] MEDS: Flomax 0.4 MG PO SCH (08:53)
[2023-03-04] MEDS: XARELTO 10 MG TABLET PO SCH (08:53)
[2023-03-04] MEDS: celeBREX 100 MG PO SCH (08:53)
[2023-03-04] MEDS: Lexapro PO SCH (08:53)
[2023-03-04] MEDS: THERAGRAN MULTIVITAMIN PO SCH (08:53)
[2023-03-04] MEDS: VITA-BEE WITH C PO SCH (08:54)
[2023-03-04] MEDS: CHLORTHALIDONE PO SCH (08:54)
[2023-03-04] MEDS: VANCOMYCIN 1 GRAM/200 ML BAG 1 GM/200 ML PIGGYBACK IV SCH ×2 (08:54→22:13)
[2023-03-04] MEDS: PATIENT OWN MEDICATION PO SCH (08:54)
[2023-03-04] MEDS: Aricept 10 MG PO SCH (22:12)
[2023-03-04] MEDS: NEURONTIN PO SCH (22:12)
[2023-03-05] MEDS: NORCO 7.5/325 MG TAB PO PRN ×2 (08:18→21:43)
[2023-03-05] MEDS: Flomax 0.4 MG PO SCH (08:18)
[2023-03-05] MEDS: XARELTO 10 MG TABLET PO SCH (08:18)
[2023-03-05] MEDS: celeBREX 100 MG PO SCH (08:18)
[2023-03-05] MEDS: Lexapro PO SCH (08:18)
[2023-03-05] MEDS: FEOSOL 325 MG PO SCH (08:18)
[2023-03-05] MEDS: THERAGRAN MULTIVITAMIN PO SCH (08:19)
[2023-03-05] MEDS: VITA-BEE WITH C PO SCH (08:19)
[2023-03-05] MEDS: CHLORTHALIDONE PO SCH (08:19)
[2023-03-05] MEDS: PATIENT OWN MEDICATION PO SCH (08:20)
[2023-03-05] MEDS: VANCOMYCIN 1 GRAM/200 ML BAG 1 GM/200 ML PIGGYBACK IV SCH ×2 (09:07→21:42)
[2023-03-05] MEDS: Aricept 10 MG PO SCH (21:42)
[2023-03-05] MEDS: NEURONTIN PO SCH (21:42)
[2023-03-06] MEDS: VANCOMYCIN 1 GRAM/200 ML BAG 1 GM/200 ML PIGGYBACK IV SCH ×2 (10:15→22:15)
[2023-03-06] MEDS: celeBREX 100 MG PO SCH (10:15)
[2023-03-06] MEDS: XARELTO 10 MG TABLET PO SCH (10:15)
[2023-03-06] MEDS: Lexapro PO SCH (10:15)
[2023-03-06] MEDS: FEOSOL 325 MG PO SCH (10:15)
[2023-03-06] MEDS: THERAGRAN MULTIVITAMIN PO SCH (10:16)
[2023-03-06] MEDS: Flomax 0.4 MG PO SCH (10:16)
[2023-03-06] MEDS: PATIENT OWN MEDICATION PO SCH (10:16)
[2023-03-06] MEDS: VITA-BEE WITH C PO SCH (10:17)
[2023-03-06] MEDS: CHLORTHALIDONE PO SCH (10:17)
[2023-03-06 11:33] LABS: Absolute Neutrophil Ct (ANC) 3.26 x10^3/uL (1.4-6.9); BASOPHIL % 0.8 % (0.0-0.4); Basophil (Absolute #) 0.04 x10^3/uL (0-0.4); Eosinophil % 7.5 % (0.00-5.0); Hematocrit 28.4 % (42-50); Hemoglobin 8.8 g/dL (12.5-18.0); IMMATURE GRAN # 0.02 x10^3u/L (0.00-0.03); IMMATURE GRAN % 0.4 % (0.00-0.4); Lymphocyte (Absolute #) 0.94 x10^3/uL (1.0-4.6); Lymphocytes % 17.6 % (24.0-44.0); Mean Cell Volume 90.4 fL (78-100); Mean Platelet Volume 9.3 fL (7.5-11.0); Monocyte (Absolute #) 0.67 x10^3/uL (0.0-1.3); Monocytes % 12.6 % (0.0-12.0); Neutrophil % 61.1 % (36.0-66.0); Platelet Count 359 x10^3/uL (150-450); Red Blood Count 3.14 x10^6/uL (4.1-5.6); Red Cell Distribution Width 16.9 % (11.5-14.0); White Blood Count 5.3 x10^3/uL (4.0-10.5)
[2023-03-06 11:41] LABS: ALBUMIN 3.8 g/dL (3.5-5.0); ALKALINE PHOSPHATASE 117 U/L (38-126); ANION GAP 13.5 MEQ/L (5-15); BLOOD UREA NITROGEN 27 mg/dL (9-20); CHLORIDE 107 mmol/L (98-107); Calcium 8.7 mg/dL (8.4-10.2); Carbon Dioxide 24 mmol/L (22-30); Creatinine 1 1.17 mg/dL (0.66-1.25); EST GLOMERULAR FILTRATION RATE > 60.0 ML/MIN; Glucose 85 mg/dL (74-106); Potassium 4.5 mmol/L (3.5-5.1); SGOT/AST 38 U/L (17-59); SGPT/ALT 33 U/L (0-50); SODIUM 140 mmol/L (137-145); Total Protein 6.9 g/dL (6.3-8.2)
[2023-03-06 17:24] LABS: Absolute Neutrophil Ct (ANC) 3.08 x10^3/uL (1.4-6.9); Basophil (Absolute #) 0.05 x10^3/uL (0-0.4); Eosinophil % 7.8 % (0.00-5.0); Eosinophil (Absolute #) 0.39 x10^3/uL (0-0.5); Hematocrit 28.8 % (42-50); Hemoglobin 8.9 g/dL (12.5-18.0); IMMATURE GRAN # 0.02 x10^3u/L (0.00-0.03); IMMATURE GRAN % 0.4 % (0.00-0.4); Lymphocyte (Absolute #) 0.91 x10^3/uL (1.0-4.6); Lymphocytes % 18.2 % (24.0-44.0); Mean Cell Volume 91.1 fL (78-100); Mean Corpuscular Hemoglobin 28.2 pg (26-32); Mean Corpuscular Hgb Concent. 30.9 g/dL (32-36); Mean Platelet Volume 9.3 fL (7.5-11.0); Monocyte (Absolute #) 0.56 x10^3/uL (0.0-1.3); Monocytes % 11.2 % (0.0-12.0); Neutrophil % 61.4 % (36.0-66.0); Platelet Count 370 x10^3/uL (150-450); Red Blood Count 3.16 x10^6/uL (4.1-5.6); Red Cell Distribution Width 16.8 % (11.5-14.0)
[2023-03-06] MEDS: NORCO 7.5/325 MG TAB PO PRN (22:16)
[2023-03-06] MEDS: Aricept 10 MG PO SCH (22:16)
[2023-03-06] MEDS: NEURONTIN PO SCH (22:16)
[2023-03-07] MEDS: celeBREX 100 MG PO SCH (09:49)
[2023-03-07] MEDS: Lexapro PO SCH (09:49)
[2023-03-07] MEDS: PATIENT OWN MEDICATION PO SCH (09:50)
[2023-03-07] MEDS: Flomax 0.4 MG PO SCH (09:50)
[2023-03-07] MEDS: FEOSOL 325 MG PO SCH (09:50)
[2023-03-07] MEDS: XARELTO 10 MG TABLET PO SCH (09:50)
[2023-03-07] MEDS: VITA-BEE WITH C PO SCH (09:50)
[2023-03-07] MEDS: CHLORTHALIDONE PO SCH (09:50)
[2023-03-07] MEDS: THERAGRAN MULTIVITAMIN PO SCH (09:51)
[2023-03-07] MEDS: VANCOMYCIN 1 GRAM/200 ML BAG 1 GM/200 ML PIGGYBACK IV SCH ×2 (09:51→22:14)
[2023-03-07] MEDS: Aricept 10 MG PO SCH (22:14)
[2023-03-07] MEDS: NEURONTIN PO SCH (22:14)
[2023-03-08] MEDS: celeBREX 100 MG PO SCH (08:39)
[2023-03-08] MEDS: XARELTO 10 MG TABLET PO SCH (08:39)
[2023-03-08] MEDS: THERAGRAN MULTIVITAMIN PO SCH (08:39)
[2023-03-08] MEDS: FEOSOL 325 MG PO SCH (08:39)
[2023-03-08] MEDS: Flomax 0.4 MG PO SCH (08:39)
[2023-03-08] MEDS: Lexapro PO SCH (08:39)
[2023-03-08] MEDS: PATIENT OWN MEDICATION PO SCH (08:40)
[2023-03-08] MEDS: VITA-BEE WITH C PO SCH (08:42)
[2023-03-08] MEDS: VANCOMYCIN 1 GRAM/200 ML BAG 1 GM/200 ML PIGGYBACK IV SCH ×2 (08:44→22:11)
[2023-03-08] MEDS: CHLORTHALIDONE PO SCH (08:45)
[2023-03-08] MEDS: NORCO 5/325 MG PO PRN ×2 (17:15→22:10)
--- NOTE | 2023-03-08 19:47 | PCM.NOTE ---
Date and Time: 03/08/23 0735 Subjective Assessment: Doing well with rehab; no issues - Review of Systems Constitutional: No Symptoms Eyes: No Symptoms Ears, Nose, & Throat: No Symptoms Respiratory: No Symptoms Cardiac: No Chest Pain, No Edema, No Syncope Abdominal/Gastrointestinal: No Abdominal Pain, No Nausea, No Vomiting, No Diarrhea Genitourinary Symptoms: No Dysuria Musculoskeletal: No Back Pain, No Neck Pain Skin: No Rash Neurological: No Dizziness, No Focal Weakness, No Sensory Changes Psychological: No Symptoms Endocrine: No Symptoms Hematologic/Lymphatic: No Symptoms Immunological/Allergic: No Symptoms All Other Systems: Reviewed and Negative Objective Exam General Appearance: no apparent distress, alert Neurologic Exam: alert, oriented x 3, cooperative, normal mood/affect, nml cerebellar function, sensation nml, No motor deficits Skin Exam: normal color, warm, dry Wound Assessment: Skin/Wound Assessment Wound/Incision Assessment Start: 02/14/23 21:38 Text: Status: Active Freq: Q6H Protocol: Document 03/08/23 14:00 MP (Rec: 03/08/23 15:30 MP [id number]) Wound/Incision Assessment Right Knee Wound Assessment Shift Assessment Wound Type Incision Wound Stage Non Pressure Wound Drainage Amount None General Appearance Well Approximated,Open to air, Clean/Dry Primary Dressing STERI STRIPS Eye Exam: PERRL, EOMI, eyes nml inspection Ears, Nose, Throat Exam: normal ENT inspection, pharynx normal, moist mucous membranes Neck Exam: normal inspection, non-tender, supple, full range of motion Respiratory Exam: normal breath sounds, lungs clear, No respiratory distress Cardiovascular Exam: regular rate/rhythm, normal heart sounds Gastrointestinal/Abdomen Exam: soft, No tenderness, No mass Extremity Exam: normal inspection, normal range of motion Back Exam: normal inspection, normal range of motion, No CVA tenderness, No vertebral tenderness Male Genitalia Exam: deferred Rectal Exam: deferred OBJECTIVE DATA Vital Signs: Vital Signs - 24 hr Temp Pulse Resp BP Pulse Ox 03/08/23 09:00 96.4 F 58 L 17 115/56 96 03/07/23 21:00 98.1 F 61 16 112/56 96 Pain Assessment - Last Documented Pain Intensity 6 Pain Scale Used 0-10 Pain Scale Intake and Output: Intake & Output 03/06/23 03/07/23 03/08/23 03/09/23 11:59 11:59 11:59 11:59 Intake Total 840 820 820 800 Balance 840 820 820 800 Lab Results: Lab Results-Last 24 Hours 03/08/23 Range/Units 04:32 Vancomycin Trough 19.83 (10-20) ug/mL Assessment/Plan (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 Admission for Rehabilitation 2. Right Knee Infection s/p Prosthetic Removal 3. MRSA Bacteremia 4. Chronic Anemia 5. Hypertension PLAN 1. Doing well with rehab; continue PT 2. Continue vancomycin x 6 weeks 3. Good RPP control; continue chlorthalidone 4. Gabapentin and Hydrocodone with good pain control 5. H/H stable Xarelto The entirety of this encounter was done via telemedicine Román Nagel MD Pulmonary and Critical Care Medicine Code(s): T84.59XA - INFECT/INFLM REACTION DUE TO OTH INTERNAL JOINT PROSTH, INIT; Z96.659 - PRESENCE OF UNSPECIFIED ARTIFICIAL KNEE JOINT
[2023-03-08] MEDS: NEURONTIN PO SCH (22:10)
[2023-03-08] MEDS: Aricept 10 MG PO SCH (22:10)
[2023-03-09] MEDS: VANCOMYCIN 1 GRAM/200 ML BAG 1 GM/200 ML PIGGYBACK IV SCH (07:57)
[2023-03-09] MEDS: celeBREX 100 MG PO SCH (08:00)
[2023-03-09] MEDS: Lexapro PO SCH (08:04)
[2023-03-09] MEDS: XARELTO 10 MG TABLET PO SCH (08:04)
[2023-03-09] MEDS: FEOSOL 325 MG PO SCH (08:05)
[2023-03-09] MEDS: PATIENT OWN MEDICATION PO SCH (08:05)
[2023-03-09] MEDS: THERAGRAN MULTIVITAMIN PO SCH (08:05)
[2023-03-09] MEDS: Flomax 0.4 MG PO SCH (08:05)
[2023-03-09] MEDS: VITA-BEE WITH C PO SCH (08:23)
[2023-03-09] MEDS: CHLORTHALIDONE PO SCH (08:23)
[2023-03-09 08:52] VITALS: BP 111/67; PULSE 51; O2SAT 98
--- NOTE | 2023-03-09 12:04 | PCM.DS ---
Discharge Summary Date of Admission: 02/14/23 21:07 Date of Discharge: 03/09/23 Admitting Physician: IMTIAZ GRANADO DO Primary Care Provider: MANDA BOURNE Allergies Allergies No Known Drug Allergies Allergy (Verified 01/04/21 13:33) Hospital Summary - Hospital Course Hospital Course: Continued IV antibiotics and PT with improvement. Plan is to continue this plan of care as an outpatient with ortho follow up. - Vitals & Intake/Output Vital Signs: Vital Signs Temperature 97.7 F 03/09/23 08:50 Pulse Rate 51 L 03/09/23 08:50 Respiratory Rate 17 03/09/23 08:50 Blood Pressure 111/67 03/09/23 08:50 O2 Sat by Pulse Oximetry 98 03/09/23 08:50 Intake & Output: Intake & Output 03/07/23 03/08/23 03/09/23 03/10/23 11:59 11:59 11:59 11:59 Intake Total 820 820 900 Balance 820 820 900 - Lab Result Diagrams: 03/06/23 17:24 03/06/23 11:23 - Procedures and Test Procedures and Tests throughout Hospitalization: Therapy Orders & Screens 02/14/23 14:14 PT Eval & Treat (MD Order) ONCE Reason for Eval:: SWINGBED PATIENT GETTING IV ANTIBIOTICS AND DRESSING CHANGES Diagnosis: DECONDITIONING R/T REMOVAL RIGHT TKA FOR INFECTION OT Eval and Treat (MD Order) ONCE Comment: Physician Instructions: Reason For Exam: 02/15/23 11:03 PT Clarification Order ROUTINE Comment: Physician Instructions: Reason For Exam: PT Clarification: P.T. TO RX 5-6X/WK TO ADDRESS FUNCTIONAL MOBILITY AND GAIT TRAINING, THER EX, BALANCE ACTIVITIES, AND PT. ED. RE: HEP, PN MG'T AND SAFETY AWARENESS TO MAXIMIZE FUNCTIONAL POTENTIAL FOR SAFE RETURN HOME. 02/15/23 17:34 OT Clarification Order ROUTINE Comment: Physician Instructions: Reason For Exam: OT Clarification: OT TO TX 5X/WK (EXCLUDING WEEKENDS AND HOLIDAYS) TO ADDRESS THERAPUETIC EXERCISES AND ACTIVIIES, ADL/FUNCTIONAL MOBILITY RETRAINING, A.E./DME EDUCATION ALL TO MAXIMIZE HIS OVERALL FUNCTION FOR RETURN TO HOME. 02/26/23 10:22 PT Clarification Order ROUTINE Comment: Physician Instructions: Reason For Exam: PT Clarification: Please do daily right knee circumference and right calf circumference,thank you ! 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, normal mood/affect, nml cerebellar function, nml station & gait Eye Exam: PERRL, EOMI Ears, Nose, Throat Exam: normal ENT inspection Neck Exam: normal inspection, non-tender, supple, full range of motion Respiratory Exam: normal breath sounds, lungs clear Cardiovascular Exam: regular rate/rhythm, normal heart sounds Back Exam: normal range of motion Extremity Exam: normal inspection, normal range of motion Skin Exam: normal color Wound Assessment: Skin/Wound Assessment Wound/Incision Assessment Start: 02/14/23 21:38 Text: Status: Active Freq: Q6H Protocol: Document 03/09/23 08:00 MP (Rec: 03/09/23 08:17 MP [id number]) Wound/Incision Assessment Right Knee Wound Assessment Shift Assessment Wound Type Incision Wound Stage Non Pressure Wound Drainage Amount None General Appearance Well Approximated,Open to air, Clean/Dry Primary Dressing STERI STRIPS Final Diagnosis/Problem List - Final Discharge Diagnosis/Problem (1) Failed total knee arthroplasty Current Visit: Yes Status: Acute Assessment & Plan: Ortho follow up Code(s): T84.018A - BROKEN INTERNAL JOINT PROSTHESIS, OTHER SITE, INIT ENCNTR; Z96.659 - PRESENCE OF UNSPECIFIED ARTIFICIAL KNEE JOINT (2) Physical deconditioning Current Visit: Yes Status: Acute Assessment & Plan: outpatient PT Code(s): R53.81 - OTHER MALAISE (3) HTN (hypertension) Current Visit: Yes Status: Chronic Assessment & Plan: Will continue home regimen Code(s): I10 - ESSENTIAL (PRIMARY) HYPERTENSION - Discharge Disposition: Home, Self-Care Condition: Stable Prescriptions: No Action Multivitamin [Daily Multiple Vitamin] 1 each PO DAILY Escitalopram Oxalate [Lexapro] 20 mg PO DAILY armodafiniL [Nuvigil] 100 mg PO DAILY Tamsulosin HCl 0.4 mg [Flomax 0.4 MG] 0.4 mg PO DAILY Vitamin B Complex 1 each PO DAILY Donepezil HCl 10 mg PO DAILY Ferrous Sulfate [Iron] 325 mg PO DAILY Gabapentin [Neurontin] 300 mg PO HS Celecoxib 100 mg [celeBREX 100 MG] 200 mg PO DAILY Hydrocodone/Acetaminophen [Hydrocodone-Acetamin 7.5-325] 2 each PO Q4H PRN PRN PRN Reason: Pain Rivaroxaban 10 mg Tablet [Xarelto 10 mg Tablet] 10 mg PO DAILY Polyethylene Glycol 3350 17 gm [Miralax Powder 17GM PACKET] 17 gm PO Q12H PRN PRN PRN Reason: Constipation Chlorthalidone 25 mg PO DAILY Instructions: Peripherally-Inserted Central Catheter (DC), Vancomycin Additional Instructions: -PATIENT IS TO FOLLOW UP AT [facility] WITH 04/11/23@ 3:00p.m. -CINDY WILL BE [facility] MANAGING YOUR ANTIBIOTICS. THEY WILL CONTACT YOU TO ARRANGE A TIME TO SEE YOU THIS EVENING 03/09/23. NEXT VANC DOSE IS DUE THIS EVENING AT 8PM ( GIVE NO EARLIER THAN 6PM). THEIR PHONE NUMBER IS [phone]. -KASIE BROTHER WILL CONTACT YOU TO DELIVER YOUR ANTIBIOTIC. THEIR PHONE NUMBER IS [phone] -WEEKLY CBC WITH DIFF, BUN, CREAT, VANC TROUGH WEEKLY THRU 03/22- NEXT LABS DUE IS 03/15 -KEEP IMMOBILIZER IN PLACE WHEN UP Follow up with: IMTIAZ GRANADO DO [ACTIVE STAFF] - 03/16/23 9:15 am
[2023-03-10 16:54] LABS: Arsenic, Blood 2 ug/L (0-9); Cadmium, Blood <0.5 ug/L (0.0-1.2); Lead, Blood <1.0 ug/dL (0.0-3.4); Mercury, Blood 1.6 ug/L (0.0-14.9)
== END 2023-03-09 13:25 | disposition home health service (06) | DRG 561 ==
LOC: MED SURG 21:07 → OBSVTOIN 21:07
PROVIDERS: ADMIT Family Medicine; ATTEND Family Medicine
DX: T84.012A Broken internal right knee prosthesis, initial encounter (principal); T84.59XA Infection and inflammatory reaction due to other internal joint prosthesis, initial encounter; R53.81 Other malaise; I10 Essential (primary) hypertension; D64.9 Anemia, unspecified; Z79.899 Other long term (current) drug therapy; Z20.828 Contact with and (suspected) exposure to other viral communicable diseases; Z79.01 Long term (current) use of anticoagulants
CPT/HCPCS: 36415; 80053; 80202; 82175; 82300; 82565; 83540; 83550; 83655; 83825; 84443; 84520; 85025; 85610; 85730; J1642; Q3014; 97110-GP; A9270-GY; J3370